=== PATIENT | male | born 1930 | race Caucasian/White ===

== ENCOUNTER 2016-12-12 06:16 | Day surgery (SDC) | payer MEDICARE ==
--- NOTE | 2016-11-17 07:42 | HP ---
CC: Dr. Mario Samuels* HISTORY AND PHYSICAL: DATE OF PLANNED ADMISSION AND SURGERY: 12/12/16 HISTORY OF PRESENT ILLNESS: Mr. Martin is an 86-year-old white male who is admitted with a tight urethral stricture for cystoscopy and internal urethrotomy. Mr. 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 He underwent an internal urethrotomy in April 2010 and this had to be repeated in October 2011, in both cases with good results. Over the last year, he has noted progressive decrease in his urinary stream and had a urethroscopy, which showed recurrence of the tight stricture. This could not be dilated in the office. He had a small post void residual. He has not had any episodes of urinary retention or urinary tract infections. Because of the recurrence of the stricture, which is becoming more symptomatic, he is admitted for the above procedure. PAST MEDICAL HISTORY AND SYSTEM REVIEW: 1. He is hypertensive, maintained on lisinopril 10 mg daily and on doxazosin 4 mg daily. 2. He has hyperlipidemia, on Simvastatin 20 mg daily. 3. He is a borderline diabetic, which is controlled on diet only. 4. He is still very active and denies any chest pain, shortness of breath, or difficulty breathing. ALLERGIES: He denies any allergies to medications. PHYSICAL EXAMINATION GENERAL: Pleasant, healthy looking white male who looks fit for his age. VITAL SIGNS: Blood pressure 120/80, pulse of 60. LUNGS: Clear. HEART: Regular and rhythmic, no murmurs. ABDOMEN: Soft, no masses, no tenderness, and no CVA tenderness. : External genitalia are normal. RECTAL: Exam shows a moderately enlarged prostate with a nodule in the left apex, but no induration. IMPRESSION: 1. 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 2. Hypertension. 3. Hyperlipidemia. PLAN: Plan is for cystoscopy and internal urethrotomy. I discussed the above plans in detail with the patient. All his questions were answered. [id number]/[facility] #: [id number] RONDA
[~2016-12-12 06:16] MED LIST: Buffered Lidocaine 0.9% SYRIN* 5 ML/SYR SYRINGE INTRADERM ONE; Buffered Lidocaine 0.9% SYRIN* 5 ML/SYR SYRINGE ONE; Famotidine IV* 10 MG/ML 2 ML (20 mg) IV ONE; Famotidine IV* 10 MG/ML 2 ML (20 mg) ONE; cefTRIAXone VIAL(*) 1,000 MG VIAL ONE
[2016-12-12] MEDS ORDERED: Iohexol 180 (CONTRAST) 10 ML SDV IV ONE (07:16)
[2016-12-12] MEDS ORDERED: fentaNYL* 50 MCG/ML 2 ML VIAL (100 MCG VIAL) ONE (07:25)
[2016-12-12] MEDS ORDERED: Ondansetron INJ* 2 MG/ML VIAL ONE (07:26)
[2016-12-12] MEDS ORDERED: Lidocaine 2% PF * 5 ML VIAL ONE (07:26)
[2016-12-12] MEDS ORDERED: Ketorolac INJ* 30 MG/ML 1 ML VIAL ONE (07:26)
[2016-12-12] MEDS ORDERED: Propofol* 10 MG/ML 20 ML BTL IV PUSH ONE (07:26)
[2016-12-12] MEDS ORDERED: Glycopyrrolate IV* 0.2 MG/ML 1 ML VIAL ONE (08:09)
[2016-12-12] MEDS ORDERED: EPHEDrine (Pressors)* 50 MG/ML VIAL ONE (08:09)
[2016-12-12] MEDS ORDERED: Ondansetron INJ* 2 MG/ML VIAL IV PRN (08:33)
[2016-12-12] MEDS ORDERED: Ketorolac INJ* 30 MG/ML 1 ML VIAL IV PRN (08:33)
[2016-12-12 09:03] VITALS: BP 116/58
--- NOTE | 2016-12-13 01:09 | OP ---
CC: Mario Samuels MD * DATE OF OPERATION: 12/12/16 - [facility] DATE OF : 32 SURGEON: Naresh Jimenez MD ANESTHESIOLOGIST: Dr. Gustavo Jama. ANESTHESIA: General. PRE-OP DIAGNOSES: 1. Multiple urethral strictures. 2. Partial urinary retention due to above. POST-OP DIAGNOSES: 1. Multiple urethral strictures. 2. Partial urinary retention due to above. OPERATIVE PROCEDURE: 1. Direct internal optic urethrotomies (penile and bulbar urethrae). 2. Cystoscopy. INDICATION FOR PROCEDURE: Mr. Box is an 86-year-old white male who has a long history of bladder outlet obstruction and tight urethral strictures. He underwent internal urethrotomies in April 2010 and again in October 2011 with good result. Over the last year, he had recurrence of his obstructive symptoms, mostly slow stream, hesitancy and frequency. Cystoscopy last year showed recurrence of the tight stricture. He is now admitted for internal urethrotomies. PATHOLOGY AT CYSTOSCOPY: There were multiple concentric strictures involving the penile and bulbar urethrae. The most dense stricture was in the bulbar urethra about 2 cm distal to the external sphincter. There was moderate prostate enlargement and obstruction. Examination of the bladder showed moderate diffuse trabeculations. There were no suspicious bladder lesions seen. DESCRIPTION OF PROCEDURE: After successful general anesthesia, the patient was placed in the lithotomy position and was prepped and draped in the usual manner. The direct internal optic urethrotome was then introduced into the urethra. The first stricture in the bulbar urethra was noted. A flexible tip guide wire was introduced through the scope and through the strictures and positioned inside the bladder. The strictures were then divided at 12 o'clock. The bulbar strictures were similarly divided. The corpus cavernosum was not entered and there was minimal bleeding from the urethrotomies. The prostatic urethra was then inspected. The bladder was entered and inspected. Additional urethrotomies were performed while pulling out the urethrotome. At the completion of the procedure, there seemed to be wide urethra with good result of the urethrotomies. A size 18-Italian Wing catheter was passed without difficulty and balloon inflated with 15 cc of water. The patient tolerated the procedure well and left the operating room in good condition. The plan is to keep the Wing in place for 3 days. It will be removed in the office. [id number]/[facility] #: [id number] RONDA
== END 2016-12-12 09:35 | disposition home or self-care (01) ==
LOC: OR 06:16
PROVIDERS: ATTEND Urology
PROC: 0TND8ZZ Release Urethra, Via Natural or Artificial Opening Endoscopic (ICD-10-PCS; principal; 2016-12-12 07:45)
DX: N35.9 Urethral stricture, unspecified (principal); R33.8 Other retention of urine; I10 Essential (primary) hypertension; E78.5 Hyperlipidemia, unspecified; R73.03 Prediabetes; N40.0 Benign prostatic hyperplasia without lower urinary tract symptoms; Z87.891 Personal history of nicotine dependence; Z68.30 Body mass index [BMI] 30.0-30.9, adult
CPT/HCPCS: 93005; J0696; J1885; J2405; J2704; J3010

== ENCOUNTER 2017-07-07 11:56 | Day surgery (SDC) | payer MEDICARE ==
--- NOTE | 2017-07-03 19:43 | HP ---
CC: Mario Samuels MD * PREOPERATIVE HISTORY AND PHYSICAL: DATE OF ADMISSION: 07/07/17 This patient is scheduled for same-day surgery admission by Dr. Onofre on Monday , 07/07/17. ATTENDING SURGEON: Ria Onofre MD * (dictated by Lizzie Lazo NP). CHIEF COMPLAINT: Left inguinal hernia. HISTORY OF PRESENT ILLNESS: The patient is an 86-year-old male recently evaluated by Dr. Onofre for a left inguinal hernia. The patient recently noticed swelling in the left scrotum after shoveling snow. He completed his 12 x [address] without stopping. He denies any pain in the left groin. He denies any signs or symptoms to suggest incarceration or strangulation. He has a history of baseline dysuria secondary to urethral strictures. He had a right inguinal hernia repair in 1963 after doing some heavy lifting. He has also had an open cholecystectomy in 1989. Dr. Onofre examined the patient and there is a left inguinal hernia that extends into the scrotum and Dr. Onofre was able to reduce the hernia with some difficulty because of its size. Dr. Onofre has recommended open left inguinal repair with mesh as the same-day surgery procedure, she discussed the nature of the surgical procedure, the rationale for the procedure, the relevant risks and benefits and today, I reviewed the expected postoperative care and recovery. The patient has had a chance to ask questions and stated that he understands the information and is satisfied with the answers given to his questions. He will sign surgical consent on the day of surgery. PAST MEDICAL HISTORY: 1. Hypertension. 2. Diet controlled type 2 diabetes. 3. Urethral strictures. 4. Hyperlipidemia. PAST SURGICAL HISTORY: Open right inguinal hernia repair in 1963; open cholecystectomy in 1989; and appendectomy at age 6. MEDICATIONS: 1. Lisinopril 20 mg p.o. daily in the morning. 2. Aspirin 81 mg daily and the patient will hold that for 5 days before surgery. 3. Simvastatin 20 mg p.o. daily. 4. Doxazosin 4 mg p.o. daily. 5. Vitamin D3 supplement 400 international units daily. 6. Advil Cold and Sinus tablet p.r.n. ALLERGIES: No known drug allergies. FAMILY HISTORY: Father with a history of abdominal aortic aneurysm. Mother with a history of emphysema. SOCIAL HISTORY: He is and lives alone in his own trailer; his daughter , Keeley lives in the same trailer park and she will be with him on the day of surgery; he quit smoking over 30 years ago, he denies the use of alcohol or other substances. REVIEW OF SYSTEMS: Constitutional: No fevers, chills, excessive fatigue, or weight loss. No previous anesthesia complications, no history of deep vein thrombosis or pulmonary embolism. Endocrine: Type 2 diabetes, diet controlled with the last hemoglobin A1c 6.8 in March 2017. No thyroid disease. Hematologic: No easy bruising or bleeding. No previous blood transfusions. Respiratory: No dyspnea on exertion or chronic cough. Cardiovascular: No anginal chest pain or palpitations. Gastrointestinal: No nausea, vomiting, diarrhea, or constipation. No change in bowel habits. Genitourinary: History of urethral strictures with multiple office procedures by Dr. Jimenez. Musculoskeletal: No back pain or complaints of joint pain. Neurologic: No headache or blurred vision or areas of focal weakness. PHYSICAL EXAMINATION GENERAL SURVEY: The patient is an 86-year-old male, well developed, well nourished, in no acute distress. VITAL SIGNS: Height 64.5 inches, weight 195 pounds, body mass index 33. Blood pressure 130/78, pulse 78 and regular, respiratory rate 18, temperature 96.8 tympanic. HEENT: Benign. NECK: Supple. No cervical lymphadenopathy. BACK: No CVA tenderness. LUNGS: Breath sounds bilaterally clear and equal. HEART: Regular rate and rhythm. No murmurs or rubs appreciated. ABDOMEN: Active bowel sounds. Well-healed right upper quadrant surgical scar, status post open cholecystectomy; diastasis recti. No other obvious masses or organomegaly. INGUINAL EXAM: Notable for swelling on the left side that extends into the scrotum. The hernia is reducible with difficulty because of its size. GENITALIA: Done within the past year, not repeated. RECTAL: Done within the past year, not repeated. EXTREMITIES: Warm without edema or skin ulcerations. NEUROLOGIC: Alert and oriented x3. Steady gait. SKIN: Warm, dry, intact. IMPRESSION: Left inguinal hernia. PLAN: Same-day surgery admission to Dr. Onofre's service on 07/07/17, for open left inguinal hernia repair with mesh. TIME SPENT: Total time spent 60 minutes with greater than 50% in [id number] history taking, patient education, and coordination of care. WILBERT LAZO, SUZETTE [id number]/[facility] #: [id number] RONDA
[~2017-07-07 11:56] MED LIST changes: +Lidocaine 2% PF * 5 ML VIAL ONE; +Metoclopramide IV* 5 MG/ML 2 ML VIAL IV SLOW PU ONE; +Metoclopramide IV* 5 MG/ML 2 ML VIAL ONE; +Midazolam* 1 MG/ML 2 ML VIAL (2 MG) ONE; +Propofol* 500 MG/50 ML BTL ONE; +Sodium Citrate/Citric Acid* 15 ML UDC ONE; +Sodium Citrate/Citric Acid* 15 ML UDC PO ONE; -cefTRIAXone VIAL(*) 1,000 MG VIAL ONE; +fentaNYL* 50 MCG/ML 2 ML VIAL (100 MCG VIAL) ONE
[2017-07-07] MEDS ORDERED: ceFAZolin 2 GM in 100 MLS NS (*) BAG IVPB ONE (11:57)
[2017-07-07] MEDS ORDERED: Bupivacaine 0.5% SDV PF* 10-30ML VIAL ONE (12:49)
[2017-07-07] MEDS ORDERED: Bupivacaine 0.25% SDV* 30 ML ONE (12:49)
[2017-07-07] MEDS ORDERED: Lidocaine 1% MPF wEPI 200,000* 30 ML SDV ONE (12:49)
[2017-07-07] MEDS ORDERED: EPHEDrine (Pressors)* 50 MG/ML VIAL ONE (13:13)
[2017-07-07] MEDS ORDERED: HYDROmorphone INJ* 1 MG/ML CARPUJECT SYRINGE IV PRN (13:14)
[2017-07-07] MEDS ORDERED: Ondansetron INJ* 2 MG/ML VIAL IV PRN (13:14)
[2017-07-07] MEDS ORDERED: oxyCODONE/Acetamin 5/325 MG* TAB PO PRN ×2 (13:14→14:16)
[2017-07-07] MEDS ORDERED: Acetaminophen TAB* 325 MG PO PRN (13:14)
[2017-07-07] MEDS ORDERED: Naloxone* 0.4 MG/ML 1 ML VIAL IV PRN (13:14)
[2017-07-07] MEDS ORDERED: fentaNYL* 50 MCG/ML 2 ML VIAL (100 MCG VIAL) IV PRN (13:14)
[2017-07-07] MEDS ORDERED: KETAMINE HCL* 50 MG/ML 10 ML VIAL ONE (13:16)
[2017-07-07] MEDS ORDERED: VASOPRESSIN 20 UNITS/ML 1 ML VIAL ONE (13:22)
[2017-07-07] MEDS ORDERED: Sterile Water for Inj* 10 ML ONE (13:22)
[2017-07-07] MEDS ORDERED: Propofol* 10 MG/ML 20 ML BTL IV PUSH ONE (13:58)
--- NOTE | 2017-07-07 14:19 | OP ---
Operative Report - Blank - Operative Report Date of Operation: 07/07/17 Note: Pre-op: Left inguinal hernia Post-op: Same Procedure: Open left inguinal hernia repair with mesh; evacuation of hydrocele Surgeon: Dr. Onofre Hand Sign Writer: EFREN Caal Anesthesia: MAC and Local Fluids: LR 1,000 cc EBL: Minimal Catheter: None Drains: None Specimen: Lipoma of cord Findings: See dictated op note
[2017-07-07 15:20] VITALS: BP 97/48
--- NOTE | 2017-07-08 14:52 | OP ---
CC: Mario Samuels MD * DATE OF OPERATION: 07/07/17 - [facility] DATE OF : 32 SURGEON: Ria Onofre MD [employer] INSURANCE: EFREN Caal; EFREN Clement student PRE-OPERATIVE DIAGNOSIS: Left inguinal hernia. POST-OPERATIVE DIAGNOSIS: Left inguinal hernia and hydrocele. OPERATIVE PROCEDURE: Left inguinal hernia repair and evacuation of hydrocele. INDICATIONS: Mr. Martin is an 86-year-old male who presented to the office with a symptomatic left inguinal hernia prompting the plan for repair. DESCRIPTION OF PROCEDURE: He was brought to the operating room, placed on the OR table in a supine position and given IV sedation. Left groin was prepped and draped in usual sterile fashion. After infiltrating with local anesthetic, an incision was made in the inguinal area. Subcutaneous tissue was then divided with electrocautery. It was recognized that before encountering any external oblique fascia, the hernia was encountered and when a search was made for the external oblique fascia it turned out to be very attenuated. It edges were identified superiorly and the ilioinguinal nerve was identified. Ilioinguinal nerve was divided from surrounding tissue and elevated over the superior flap of the external oblique fascia. The cord was then encircled and retracted anteriorly. This garret the hydrocele of the scrotum into the wound and so the cord structures were divided from the actual hernia. The hydrocele sac was opened and some of the excess tunica vaginalis was excised and then again cord structures were from the hernia sac and the testicle was replaced into the scrotal sac. The floor of the inguinal canal was noted to be very attenuated with almost no integrity but once the hernia sac was freed from the cord structures, it was able to be reduced into the deep inguinal ring, which was quite large. A decision was made to use a bilayer mesh and this was placed such that the bottom layer was in the deep inguinal ring and the top layer was on the floor of the inguinal canal. It was secured medially to the pubic tubercle and superiorly to the conjoint tendon and inferiorly attempts were made to secure it to a structure consistent with the shelving portion of the inguinal ligament, but this was again attenuated. The natural contour of the anterior layer of the mesh created path for the cord structures. The external oblique fascia was then reapproximated over the cord structures, after replacement of the nerve in the inguinal canal. The external oblique fascia was reapproximated with 0 Vicryl and then closure was accomplished, 3-0 Polysorb was used to approximate the subcutaneous tissue and the skin was closed with 4-0 Prolene in a subcuticular fashion. Steri-Strips and a dry sterile dressing were applied. All sponge and instrument counts were correct. The patient tolerated the procedure well and was transferred to Recovery in the stable condition. [id number]/[facility] #: [id number] [facility]
== END 2017-07-07 15:47 | disposition home or self-care (01) ==
LOC: OR 11:56
PROVIDERS: ATTEND Surgery
DX: K40.90 Unilateral inguinal hernia, without obstruction or gangrene, not specified as recurrent (principal); N43.3 Hydrocele, unspecified; E11.9 Type 2 diabetes mellitus without complications; E78.5 Hyperlipidemia, unspecified; Z68.32 Body mass index [BMI] 32.0-32.9, adult; I10 Essential (primary) hypertension; Z87.891 Personal history of nicotine dependence; N35.9 Urethral stricture, unspecified
CPT/HCPCS: 88304; A9270-GY; C1781; J2001; J2250; J2704; J2765; J3010

== ENCOUNTER 2018-02-07 10:37 | Inpatient (IN) | payer MEDICARE ==
[2018-02-07 11:50] LABS: INR 1.07 (0.77-1.02)
[2018-02-07 12:07] LABS: ABS Basophils 0 10^3/ul (0-0.2); ABS Eosinophils 0 10^3/ul (0-0.6); ABS Lymphocytes 0.6 10^3/ul (1.0-4.8); ABS Monocytes 0.7 10^3/ul (0-0.8); ABS Neutrophils 9.1 10^3/ul (1.5-7.7); ABS Nucleated RBC 0 10^3/ul; Eosinophil % 0 % (0-6); Hematocrit 33 % (42-52); Lymphocyte % 5.5 % (25-47); Mean Corpuscular HGB Conc 34 g/dl (31-36); Mean Corpuscular Hemoglobin 31 pg (27-31); Mean Corpuscular Volume 93 fL (80-94); Mean Platelet Volume 8.8 um3 (7.4-10.4); Nucleated Red Blood Cells % 0.1; Platelet Count 194 10^3/ul (150-450); Red Blood Count 3.52 10^6/ul (4.00-5.40); Red Cell Distribution Width 12 % (10.5-15); White Blood Count 10.4 10^3/ul (3.5-10.8)
--- NOTE | 2018-02-07 12:11 | ED ---
Shortness of Breath - HPI Summary HPI Summary: This patient is an 87 year old M [facility] son with a chief complaint of SOB since 3 weeks ago. Pt endorses right anterior CP only with cough and movement. He endorses productive cough with white phlegm. He denies hemoptysis and orthopnea. Pt denies PMHx CHF, DVT, PE, asthma, COPD, and KS. PMHx DM, HTN. - History of Current Complaint Chief Complaint: EDChestPainROMI Time Seen by Provider: 02/07/18 10:57 Hx Obtained From: Patient Onset/Duration: Gradual Onset, Lasting Weeks, Still Present Timing: Constant Current Severity: Mild Dyspnea At: Exertion Aggrevating Factors: Movement, Other - cough Associated Signs & Symptoms: Cough (Productive) - white phlegm, Chest Pain w/ Cough - Allergy/Home Medications Allergies/Adverse Reactions: Allergies Allergy/AdvReac Type Severity Reaction Status Date / Time No Known Allergies Allergy Verified 02/07/18 11:13 Home Medications: Home Medications Acetaminophen TAB* [Tylenol TAB*] 650 mg PO Q6H PRN 02/07/18 [History Confirmed 02/07/18] Aspirin EC TAB* [Ecotrin EC Low Dose 81 MG*] 81 mg PO DAILY 02/07/18 [History Confirmed 02/07/18] Cholecalciferol TAB* [Vitamin D TAB*] 400 unit PO DAILY 02/07/18 [History Confirmed 02/07/18] Doxazosin TAB* [Cardura TAB*] 4 mg PO BEDTIME 02/07/18 [History Confirmed ] Lisinopril TAB* [Prinivil TAB*] 20 mg PO DAILY 02/07/18 [History Confirmed 02/07] Simvastatin TAB(NF) [Zocor(NF)] 20 mg PO QPM 02/07/18 [History Confirmed ] metFORMIN* [Glucophage 500 MG TAB *] 500 mg PO BID 02/07/18 [History Confirmed 02/07/18] PMH/Surg Hx/FS Hx/Imm Hx Endocrine/Hematology History: Reports: Hx Diabetes - type 2 , no meds Cardiovascular History: Reports: Hx Hypertension - on meds, Other Cardiovascular Problems/Disorders - high cholesterol Denies: Hx Congestive Heart Failure, Hx Deep Vein Thrombosis, Hx Myocardial Infarction Respiratory History: Reports: Other Respiratory Problems/Disorders - occas sinus issues Denies: Hx Asthma, Hx Chronic Obstructive Pulmonary Disease (COPD), Hx Pulmonary Edema GI History: Denies: Other GI Disorders History: Reports: Other Problems/Disorders - PROSTATE - Musculoskeletal History: Denies: Other Musculoskeletal History Sensory History: Reports: Hx Cataracts - SURGERY ON 12/30/15, AND 01/06/16, Hx Contacts or Glasses - READING, Hx Hearing Aid - right ear Opthamlomology History: Reports: Hx Cataracts - SURGERY ON 12/30/15, AND 01/06/16 , Hx Contacts or Glasses - READING Neurological History: Denies: Other Neuro Impairments/Disorders Psychiatric History: Denies: Hx Autism, Hx Schizophrenia - Surgical History Surgery Procedure, Year, and Place: 1963 - HERNIA SURGERY. - GALL BLADDER REMOVED. APPENDECTOMY CHILD. scar tissue in urethra x3, cmc Hx Anesthesia Reactions: No - Immunization History Immunizations Up to Date: Yes Infectious Disease History: No Infectious Disease History: Reports: Hx Hepatitis - HEPATITIS IN 1950'S, UNSURE OF WHAT TYPE, Hx Shingles Denies: Traveled Outside the [place] in Last 30 Days - Family History Known Family History: Negative: Hypertension, Diabetes - Social History Occupation: Retired Alcohol Use: None Substance Use Type: Reports: None Smoking Status (MU): Former Smoker Amount Used/How Often: 1/2 pack a day for15 yrs Review of Systems Negative: Fever Positive: Chest Pain All Other Systems Reviewed And Are Negative: Yes Physical Exam - Summary Physical Exam Summary: GENERAL: Patient is a well-developed and nourished M who is lying comfortable in the stretcher. Patient is not in any acute respiratory distress. HEAD AND FACE: Normocephalic EYES: PERRLA, EOMI x 2. EARS: Hearing grossly intact. MOUTH: Oropharynx within normal limits. NECK: Supple, trachea is midline, no adenopathy, no JVD, no carotid bruit. CHEST: Symmetric, no tenderness at palpation LUNGS: Clear to auscultation bilaterally. No wheezing or crackles. CVS: Regular rate and rhythm, S1 and S2 present, no murmurs or gallops appreciated. ABDOMEN: Soft, non-tender. Bowel sounds are normal. No abdominal abnormal pulsations. EXTREMITIES: Full ROM in all major joints, no edema, no cyanosis or clubbing. NEURO: Alert and oriented x 3. No acute neurological deficits. Speech is normal and follows commands. SKIN: Dry and warm Triage Information Reviewed: Yes Vital Signs On Initial Exam: Initial Vitals Temp Pulse Resp BP Pulse Ox 97.8 F 73 16 144/63 98 02/07/18 10:39 02/07/18 10:39 02/07/18 10:39 02/07/18 10:39 02/07/18 10:39 Vital Signs Reviewed: Yes Diagnostics - Vital Signs Vital Signs Temp Pulse Resp BP Pulse Ox 02/07/18 12:00 68 28 118/52 94 02/07/18 11:30 70 31 120/61 96 02/07/18 11:02 72 21 115/65 96 02/07/18 11:00 72 32 118/101 97 02/07/18 10:39 97.8 F 73 16 144/63 98 - Laboratory Lab Results: Lab Results 02/07/18 02/07/18 02/07/18 Range/Units 11:19 11:34 11:34 WBC 10.4 (3.5-10.8) 10^3/ul RBC 3.52 L (4.00-5.40) 10^6/ul Hgb 11.0 L (14.0-18.0) g/dl Hct 33 L (42-52) % MCV 93 (80-94) fL MCH 31 (27-31) pg MCHC 34 (31-36) g/dl RDW 12 (10.5-15) % Plt Count 194 (150-450) 10^3/ul MPV 8.8 (7.4-10.4) um3 Neut % (Auto) 88.0 H (38-83) % Lymph % (Auto) 5.5 L (25-47) % [place] % (Auto) 6.3 (0-7) % Eos % (Auto) 0 (0-6) % Baso % (Auto) 0.2 (0-2) % Absolute Neuts (auto) 9.1 H (1.5-7.7) 10^3/ul Absolute Lymphs (auto) 0.6 L (1.0-4.8) 10^3/ul Absolute Monos (auto) 0.7 (0-0.8) 10^3/ul Absolute Eos (auto) 0 (0-0.6) 10^3/ul Absolute Basos (auto) 0 (0-0.2) 10^3/ul Absolute Nucleated RBC 0 10^3/ul Nucleated RBC % 0.1 INR (Anticoag Therapy) 1.07 H (0.77-1.02) APTT 22.3 L (26.0-36.3) seconds D-Dimer, Quantitative Pending Sodium Pending Potassium Pending Chloride Pending Carbon Dioxide Pending Anion Gap Pending BUN Pending Creatinine Pending Est GFR ( Amer) Pending Est GFR (Non-Af Amer) Pending BUN/Creatinine Ratio Pending Glucose Pending Lactic Acid (0.5-2.0) mmol/L Calcium Pending Total Bilirubin Pending AST Pending ALT Pending Alkaline Phosphatase Pending Troponin I 0.01 (<0.04) ng/mL B-Natriuretic Peptide ( - 100) pg/mL Total Protein Pending Albumin Pending Globulin Pending Albumin/Globulin Ratio Pending 02/07/18 02/07/18 Range/Units 11:34 11:34 WBC (3.5-10.8) 10^3/ul RBC (4.00-5.40) 10^6/ul Hgb (14.0-18.0) g/dl Hct (42-52) % MCV (80-94) fL MCH (27-31) pg MCHC (31-36) g/dl RDW (10.5-15) % Plt Count (150-450) 10^3/ul MPV (7.4-10.4) um3 Neut % (Auto) (38-83) % Lymph % (Auto) (25-47) % [place] % (Auto) (0-7) % Eos % (Auto) (0-6) % Baso % (Auto) (0-2) % Absolute Neuts (auto) (1.5-7.7) 10^3/ul Absolute Lymphs (auto) (1.0-4.8) 10^3/ul Absolute Monos (auto) (0-0.8) 10^3/ul Absolute Eos (auto) (0-0.6) 10^3/ul Absolute Basos (auto) (0-0.2) 10^3/ul Absolute Nucleated RBC 10^3/ul Nucleated RBC % INR (Anticoag Therapy) (0.77-1.02) APTT (26.0-36.3) seconds D-Dimer, Quantitative Sodium Potassium Chloride Carbon Dioxide Anion Gap BUN Creatinine Est GFR ( Amer) Est GFR (Non-Af Amer) BUN/Creatinine Ratio Glucose Lactic Acid 1.9 (0.5-2.0) mmol/L Calcium Total Bilirubin AST ALT Alkaline Phosphatase Troponin I (<0.04) ng/mL B-Natriuretic Peptide 137 H ( - 100) pg/mL Total Protein Albumin Globulin Albumin/Globulin Ratio Result Diagrams: 02/10/18 05:44 02/10/18 05:44 Lab Statement: Any lab studies that have been ordered have been reviewed, and results considered in the medical decision making process. - CT CTA chest/thorax CT Interpretation: Positive (See Comments) CT Interpretation Completed By: Radiologist - Pulmonary emboli noted in the right lower lobe, right middle lobe and right upper lobe pulmonary arteries as well as in the left lower lobe pulmonary artery. Dr. Emery has reviewed this report. - EKG 1055 Cardiac Rate: NL - 73 EKG Rhythm: Sinus Rhythm ST Segment: Normal Ectopy: None EKG Interpretation: abnl R-wave progression EKG Comparison: No Significant Change - from 12/05/16. Course/Dx - Course Course Of Treatment: An 87-year-old M presents to the ED with a CC of SOB for 3 weeks. (+) productive cough (white phlegm), right anterior CP, but only with cough or movement. (-) hemoptysis and orthopnea. PMHx DM, HTN, denies PMHx COPD , asthma, PE, DVT, KS, and CHF. A CTA chest/thorax reveals bilateral PEs. An EKG reveals NSR 73, abnl R wave progression, similar EKG to 12/05/16. In the ED course, pt was given nl saline and started on heparin drip. Pt shows abnl D- dimer (>1050), H&H, RBC, neut%, lymph %, APTT, BUN, Na+, creat, glucose, and BNP. Case discussed with hospitalist. I discussed results with patient. The patient agrees with this plan. - Diagnoses Provider Diagnoses: Bilateral pulmonary embolism - Physician Notifications Discussed Care of Patient With: Luis Josue Time Discussed With Above Provider: 13:45 Instructed by Provider To: Other - Accepts admission. - Critical Care Time Critical Care Time: 30-74 min Discharge - Sign-Out/Discharge Documenting (check all that apply): Patient Departure - admit - Discharge Plan Condition: Fair Disposition: ADMITTED TO [facility] - Billing Disposition and Condition Condition: FAIR Disposition: Admitted to [facility] - Attestation Statements Document Initiated by Jenaro: Yes Documenting Scribe: Kieran Beltran Provider For Whom Jenaro is Documenting (Include Credential): Dr. Gissell Emery MD Scribe Attestation: Kieran Silvestre, scribed for Dr. Gissell Emery MD on 02/10/18 at 0732. Scribe Documentation Reviewed: Yes Provider Attestation: The documentation as recorded by the Kieran coats accurately reflects the service I personally performed and the decisions made by me, Dr. Gissell Emery MD
[2018-02-07 12:19] LABS: EGFR Non-African American 44.4 (>60)
[2018-02-07] MEDS ORDERED: NS 0.9% 500 ML* 500 ML IV ONE (12:40)
[2018-02-07] MEDS ORDERED: Iodixanol* (CONTRAST) 320 MG/ML 100 ML SDV IV ONE (12:57)
--- NOTE | 2018-02-07 13:59 | RAD ---
Indication: Shortness of breath, elevated d-dimer. Contrast: Administered 79.3 ml of VISAPAQUE 320 mg/ml CTA of the chest performed after IV contrast administration. Coronal and sagittal reconstructed images were obtained. The pulmonary arterial tree is well opacified. There are filling defects in the right main pulmonary artery extending to the right middle lobe and right lower lobe branches as well as the right upper lobe branches of the right pulmonary artery. Filling defects are noted in the left lower lobe branches of left pulmonary artery. Findings are consistent with pulmonary embolus. There may be some scarring noted in the lung bases. Emphysematous changes are noted. Thoracic aorta demonstrates no evidence of thoracic aortic dissection. Inferior thyroid lobes demonstrates a nodule in the lower pole of left lobe measuring 2.1 cm. No mediastinal or hilar adenopathy is otherwise noted. The heart demonstrates no pericardial effusion. IMPRESSION: Pulmonary emboli noted in the right lower lobe, right middle lobe and right upper lobe pulmonary arteries as well as in the left lower lobe pulmonary artery. Findings discussed with Dr. Emery at 1356 hours.
[2018-02-07] MEDS ORDERED: Heparin DRIP 25,000 UNITS(*) 25,000 UNITS/500 ML BAG ONE (14:51)
[2018-02-07] MEDS ORDERED: Heparin VIAL(*) 5000 UNITS/ML VIAL (FIVE THOUSAND) ONE (14:51)
[2018-02-07] MEDS: Heparin DRIP 25,000 UNITS(*) 25,000 UNITS/500 ML BAG IV SCH (14:55)
[2018-02-07] MEDS ORDERED: Heparin VIAL(*) 5000 UNITS/ML VIAL (FIVE THOUSAND) IV SCH (15:00)
[2018-02-07] MEDS ORDERED: Heparin VIAL(*) 5000 UNITS/ML VIAL (FIVE THOUSAND) IV PRN (15:02)
[2018-02-07] MEDS ORDERED: Albuterol 2.5 MG/3 ML NEB.SOL* (0.083%) INH PRN (15:40)
[2018-02-07] MEDS ORDERED: Al Hydrox/Mg Hydrox/Simet LIQ* 30 ML UDC PO PRN (15:40)
[2018-02-07] MEDS ORDERED: Acetaminophen TAB* 325 MG PO PRN (15:40)
[2018-02-07] MEDS ORDERED: Ondansetron INJ* 2 MG/ML VIAL IV PRN (15:40)
[2018-02-07] MEDS: Atorvastatin* 10 MG TAB PO SCH (17:43)
[2018-02-07] MEDS ORDERED: Doxazosin TAB* 2 MG PO SCH (21:00)
--- NOTE | 2018-02-07 21:01 | HP ---
CC: Dr. Samuels * ADMISSION HISTORY AND PHYSICAL: DATE OF ADMISSION: 02/07/18 PATIENT OF ADMITTING HOSPITALIST: Dr. Luis Josue.* (DICTATED BY EFREN LOPEZ) PRIMARY CARE PHYSICIAN: Dr. Mario Samuels. CHIEF COMPLAINT: Shortness of breath. HISTORY OF PRESENT ILLNESS: Mr. Box is a pleasant 87-year-old gentleman with past medical history significant for hypertension, type 2 diabetes mellitus , urethral stricture and benign prostatic hypertrophy, who presented to the emergency room today with 2-week history of worsening shortness of breath. The patient reports that he gets a little "winded" after minimal exertions at home that has been going on for the past 2 weeks, but denied any associated substernal chest pain, calf pain, or history of PE or DVT. His shortness of breath has gotten progressively worse and now associated with very minimal exertions at home. He also reports some pleuritic right-sided chest pain upon taking deep inspiration. He denied any similar symptoms in the past. He denied any fever, chills, nausea, vomiting, dizziness, headache, or any other associated symptoms. He had laboratory workup done in the emergency room today that revealed normal CBC with slightly decreased hemoglobin and hematocrit at 11 and 33, which has been baseline for the patient for the past year. He had an elevated D-dimer greater than 1050 for which a followup CTA of the chest was done revealing multiple pulmonary emboli more localized to the right lung. The patient was able to maintain good oxygen saturation on room air; however, he continued to have pleuritic chest pain with deep inspiration. Given his shortness of breath and the findings of the CTA, we were asked to see the patient for further evaluation and to consider admission for observation under hospitalist services. Heparin drip was initiated in the emergency room per protocol and the patient was clinically stable at the time of admission. PAST MEDICAL HISTORY: As mentioned above, significant for: 1. Hypertension. 2. Type 2 diabetes mellitus. 3. Urethral strictures. 4. Hyperlipidemia. 5. Arthritis. PAST SURGICAL HISTORY: Significant for: 1. Open right inguinal hernia repair in the early 60s. 2. Open cholecystectomy in 1989. 3. Appendectomy at age 6. 4. Left inguinal hernia repair in June 2017 with evacuation of left hydrocele. CURRENT MEDICATIONS: His medications at home include: 1. Tylenol 650 mg p.o. q.6 hours as needed for fever or pain. 2. Aspirin 81 mg p.o. daily. 3. Vitamin D 400 units p.o. daily. 4. Cardura 4 mg p.o. q.h.s. 5. Lisinopril 20 mg p.o. daily. 6. Glucophage 500 mg p.o. b.i.d. 7. Zocor 20 mg p.o. daily. ALLERGIES: He has no known drug allergies. FAMILY HISTORY: Significant for history of AAA in his father as well as history of COPD and emphysema in his mother. SOCIAL HISTORY: The patient is and lives alone. His daughter, Keeley, lives in the same [place] park and she carries the healthcare proxy. He is a former smoker, who quit over 30 years ago. Denies use of any alcohol or illicit drug use. He wishes to be a full code. REVIEW OF SYSTEMS: See HPI. Otherwise, 14 points review of systems were examined and they were essentially negative. PHYSICAL EXAMINATION GENERAL: He is a pleasant, elderly gentleman, in no acute distress or discomfort at the time of admission. VITAL SIGNS: Revealed temperature of 97.8, heart rate of 68, blood pressure 132 /64, respiration of 20 with O2 sat of 94% on room air. HEENT: Head is normocephalic, atraumatic. Sclerae anicteric. PERRLA. EOMs intact. Oropharynx is pink and moist. NECK: Supple. Trachea midline. No cervical adenopathy, thyromegaly, or JVD. LUNGS: Clear to auscultation bilaterally. HEART: Regular rate and rhythm. Normal S1 and S2 without rubs, murmurs, or gallops. ABDOMEN: Soft, nontender, and nondistended. No hernias, masses, or hepatosplenomegaly. BACK: With normal curvature and no CVA tenderness. EXTREMITIES: Without cyanosis, clubbing, or edema. NEUROLOGIC: He is awake, alert, and oriented x4. Tongue is midline. Handgrip is equal bilaterally and sensation is intact throughout. RECTAL: Exam deferred at this time. LABORATORY WORKUP: CBC with white count of 10,000, hemoglobin of 11, hematocrit of 33, and platelets of 194. Chemistry panel with sodium of 132, potassium 4.5, chloride of 102, CO2 of 22, BUN of 30, and creatinine of 1.5. His glucose is 183. LFTs within normal limits. BNP is slightly elevated at 137. ACCESSORY DIAGNOSTIC DATA: As mentioned above, CTA of the chest and thorax revealed multiple emboli noted to the right lower lobe, right middle lobe and right upper lobe pulmonary arteries as well as in the left lower lobe pulmonary artery. IMPRESSION: An 87-year-old gentleman with history of hypertension, hyperlipidemia, type 2 diabetes mellitus and urethral stricture, who presented to the emergency room with 2 weeks history of progressive shortness of breath and found to have multiple pulmonary emboli. ASSESSMENT AND PLAN: The patient will be admitted under hospitalist services for the followin. Pulmonary embolism. The patient appeared to be clinically stable. We will maintain close observation on telemetry unit and provide oxygen therapy as needed. Heparin drip per protocol was initiated in the emergency room and we will continue unfractionated heparin drip for the time being, likely to switch to oral agents such as Xarelto or Eliquis upon discharge. The patient expressed fear of using needles at home and would like to avoid any possibility of using Lovenox as an outpatient. His exam was essentially unremarkable and denied any calf pain for which I will not proceed with bilateral lower extremity Doppler at this time; however, if there was any clinical significance or any changes overnight, we might proceed with that tomorrow. 2. Hypertension. The patient had a recent visit with Dr. Samuels, who withheld one of his blood pressure agents at this time. The patient tells me that he is no longer taking his morning dose of lisinopril; however, he continues to take his Cardura 4 mg every night and we will continue this dose and hold lisinopril until further confirmation. His blood pressure has been optimal at this time. 3. Type 2 diabetes mellitus. The patient is on low dose metformin at home and most of his diabetes is controlled by diet. We will keep him on consistent carbohydrate diet and we will do fingersticks every a.c. and every h.s. and to use insulin periodically as needed. 4. Hyperlipidemia. I will keep him on his Zocor and aspirin. 5. Deep vein thrombosis prophylaxis: The patient is already on heparin drip for treatment of pulmonary embolism. 6. Code status: He wishes to be a full code. 7. Disposition: Admit to [facility] for observation overnight and treatment of pulmonary embolism. TIME SPENT: Approximately 60 minutes spent admitting this patient for which greater than 50% on taking history and performing physical exam. I have discussed the case with my attending, Dr. Josue, who agreed to plan of care. EFRNE CUADRA [id number]/CPS #: [id number] RONDA
[2018-02-08 04:29] LABS: ABS Basophils 0 10^3/ul (0-0.2); ABS Eosinophils 0 10^3/ul (0-0.6); ABS Lymphocytes 1.1 10^3/ul (1.0-4.8); ABS Monocytes 0.8 10^3/ul (0-0.8); ABS Nucleated RBC 0 10^3/ul; Eosinophil % 0.1 % (0-6); Hematocrit 28 % (42-52); Hemoglobin 9.5 g/dl (14.0-18.0); Lymphocyte % 12.6 % (25-47); Mean Corpuscular HGB Conc 34 g/dl (31-36); Mean Corpuscular Hemoglobin 32 pg (27-31); Mean Corpuscular Volume 93 fL (80-94); Mean Platelet Volume 8.6 um3 (7.4-10.4); Nucleated Red Blood Cells % 0; Platelet Count 157 10^3/ul (150-450); Red Blood Count 2.99 10^6/ul (4.00-5.40); Red Cell Distribution Width 12 % (10.5-15); White Blood Count 8.9 10^3/ul (3.5-10.8)
[2018-02-08 04:38] LABS: EGFR Non-African American 53.3 (>60)
[2018-02-08] MEDS: Aspirin EC TAB* 81 MG TAB.EC PO SCH (10:43)
[2018-02-08] MEDS: Cholecalciferol TAB* 400 UNIT PO SCH (10:43)
--- NOTE | 2018-02-08 14:59 | RAD ---
HISTORY: PE COMPARISONS: None relevant TECHNIQUE: Multiple transverse and longitudinal ultrasound images were obtained of the bilateral lower extremities from the level of the common femoral vein inferiorly through to the infrapopliteal veins using grayscale, color Doppler, and spectral Doppler imaging with and without compression and with augmentation. FINDINGS: VEINS: The left peroneal veins are not clearly visualized. The remainder of the venous system of the bilateral lower extremities is compressible throughout its course, with normal flow on color Doppler imaging and normal response to augmentation on spectral Doppler imaging. SOFT TISSUES: Unremarkable. OTHER FINDINGS: None. IMPRESSION: LIMITED VISUALIZATION OF THE PERONEAL VEINS OF THE LEFT CALF WHICH MAY BE TECHNICAL OR MAY REPRESENT OCCLUSION OF THE PERONEAL VEINS OF UNCERTAIN ACUITY. OTHERWISE, THERE IS NO DEEP VEIN THROMBOSIS OF THE LOWER EXTREMITIES BILATERALLY.
[2018-02-08] MEDS: Heparin DRIP 25,000 UNITS(*) 25,000 UNITS/500 ML BAG IV SCH (16:01)
--- NOTE | 2018-02-08 16:24 | ECHO ---
Patient: ASHLEY YOUSSEF [facility] Rec#: [id number] : 1930 Date: 02/08/2018 Age: 87y Height: 167.64 cm / 66.0 in Weight: 78.47 kg / 172.9 lbs Sex: M BSA: 1.88 Room#: 448 Admit Date#: 02/07/2018 Type: Inpatient Referring: Nicola Ross Reading: Hesham Pinedo MD Coupling Machine Operator: Muna Cortes,SYDCS,RDMS CC: Mario Samuels MD Transthoracic Echocardiogram Indication: PE BP: 107/45 HR: 68 Rhythm: NSR Findings History: HTN, HLD, DM Technical Comments: The study quality is good. Left Ventricle: The left ventricular chamber size is normal. Mild concentric left ventricular hypertrophy is observed. There is a prominent septal knuckle. The estimated ejection fraction is 55-60%. There is an E to A reversal in the mitral valve flow pattern suggestive of diastolic dysfunction. Left Atrium: The left atrium is mildly dilated. Right Ventricle: The right ventricle wall thickness is mildly increased. The right ventricular cavity size is normal. The right ventricular global systolic function is low normal. Right Atrium: The right atrial cavity size is normal. Aortic Valve: The aortic valve is trileaflet. The aortic valve leaflets are mildly thickened. Systolic excursion of the aortic valve is normal. There is no evidence of aortic regurgitation. There is no evidence of aortic stenosis. Mitral Valve: The mitral valve leaflets appear normal. There is no evidence of mitral regurgitation. There is no evidence of mitral stenosis. Tricuspid Valve: The tricuspid valve leaflets are normal. There is trace tricuspid regurgitation. Unable to estimate the right ventricular systolic pressure. Pulmonic Valve: The pulmonic valve appears normal. There is mild pulmonic regurgitation. Pericardium: There is no significant pericardial effusion. Aorta: The aortic root appears normal. There is no dilatation of the aortic arch. Pulmonary Artery: The main pulmonary artery is not well visualized. Venous: The inferior vena cava is not visualized. Summary: There was not any prior study for comparison. Conclusions Mild concentric left ventricular hypertrophy is observed. The estimated ejection fraction is 55-60%. There is an E to A reversal in the mitral valve flow pattern suggestive of diastolic dysfunction. The left atrium is mildly dilated. The right ventricle wall thickness is mildly increased. The right ventricular global systolic function is low normal. The aortic valve leaflets are mildly thickened. No significant valvular lesions. Measurements Name Value Normal Range RVIDd (AP) 2D 3 cm (0.9 - 2.6) RVDdMajor (2D) 3.7 cm (2.2 - 4.4) RAd ISD 4CH 4.5 cm (3.4 - 4.9) RA (A4C)W 2.2 cm (2.9 - 4.6) IVSd (2D) 1.4 cm (0.6 - 1) LVPWd (2D) 1.2 cm (0.6 - 1) LVIDd (2D) 3.9 cm (3.6 - 5.4) LVIDs (2D) 2.3 cm - LV FS (2D) 40 % (25 - 45) Aortic Annulus 2.1 cm (1.4 - 2.6) Ao root diameter (2D) 2.8 cm (2.1 - 3.5) Ascending Ao 2.7 cm (2.1 - 3.4) Aortic arch 3.4 cm (1.8 - 3.4) LA dimension (AP) 2D 3.5 cm (2.3 - 3.8) LAd ISD 4CH 5.8 cm (2.9 - 5.3) LA ISD 4CH W 3.8 cm (2.5 - 4.5) Name Value Normal Range LA ESV SP 4CH (A/L) 54.16 ml - LA ESV SP 2CH (A/L) 47.43 ml - LA ESV BP (A/L) 53.19 ml - LA ESV BP (A/L) index 28 ml/m2 - LA ESV SP 4CH (MOD) 47.68 ml - LA ESV SP 2CH (MOD) 43.41 ml - Name Value Normal Range MV E-wave Vmax 0.7 m/sec - MV deceleration time 215 msec - MV A-wave Vmax 0.9 m/sec - MV E:A ratio 0.8 ratio - P. vein S-wave Vmax 0.5 m/sec - P. vein D-wave Vmax 0.4 m/sec - P. vein S:D Vmax ratio 1.2 ratio - P. vein A-wave duration 100 msec - LV septal e' Vmax 0.07 m/sec - LV lateral e' Vmax 0.09 m/sec - LV E:e' septal ratio 10 ratio - LV E:e' lateral ratio 8 ratio - Name Value Normal Range AV Vmax 1.5 m/sec - AV VTI 29 cm - AV peak gradient 9 mmHg - AV mean gradient 4.7 mmHg - LVOT Vmax 0.9 m/sec - LVOT VTI 19.6 cm - LVOT peak gradient 3.2 mmHg - LVOT mean gradient 1.7 mmHg - ASHLEY Vmax 0.8 m/sec - Name Value Normal Range RAP 8 mmHg - Name Value Normal Range PV Vmax 0.8 m/sec - PV peak gradient 2.6 mmHg -
[2018-02-08] MEDS: Atorvastatin* 10 MG TAB PO SCH (18:00)
--- NOTE | 2018-02-08 18:08 | PN ---
Subjective Date of Service: 02/08/18 Interval History: Patient is feeling ok. Intermittent pleuritic CP. Patient had slight SOB and needed O2 overnight. Patient denies F/C, night sweats, abdominal pain, leg pain , dysuria, or other pain. Patient has been having weight loss recently with poor appetite. Patient denies any recent travel, immobilization or illness. Patient had a colonoscopy several years ago. 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 Family History: Unchanged from Admission Social History: Unchanged from Admission Past Medical History: Unchanged from Admission Objective Active Medications: Acetaminophen (Tylenol Tab*) 650 mg PO Q4H PRN PRN Reason: FEVER/PAIN Al Hydrox/Mg Hydrox/Simethicone (Maalox Plus*) 30 ml PO Q6H PRN PRN Reason: INDIGESTION Albuterol (Ventolin 2.5 Mg/3 Ml Neb.Kimmie*) 2.5 mg INH [id number] AWAKE PRN PRN Reason: sob/wheezing Aspirin (Aspirin Ec Tab*) 81 mg PO DAILY [facility] Last Admin: 02/08/18 10:43 Dose: 81 mg Atorvastatin Calcium (Lipitor*) 10 mg PO QPM [facility] Last Admin: 02/08/18 18:00 Dose: 10 mg Cholecalciferol (Vitamin D Tab*) 400 unit PO DAILY [facility] Last Admin: 02/08/18 10:43 Dose: 400 unit Doxazosin Mesylate (Cardura Tab*) 4 mg PO BEDTIME [facility] Heparin Sodium (Porcine) (Heparin Vial(*)) 0 units IV .PRN BOLUS PRN PRN Reason: HEPARIN DRIP PROTOCOL Heparin Sodium/Dextrose (Heparin Drip 25,000 Units(*)) 25,000 units in 500 mls @ 0 mls/hr IV PER RATE [facility]; Protocol Last Admin: 02/08/18 16:01 Dose: 20 mls/hr Ondansetron HCl (Zofran Inj*) 4 mg IV Q4H PRN PRN Reason: NAUSEA/VOMITING Vital Signs - 8 hr 02/08/18 02/08/18 11:36 16:47 Temperature 98.0 F 98.8 F Pulse Rate 61 82 Respiratory 18 20 Rate Blood Pressure 115/47 144/59 (mmHg) O2 Sat by Pulse 99 96 Oximetry Oxygen Devices in Use Now: Nasal Cannula Appearance: Patient is an 87yo male who appears stated age and is sitting in the bed in NAD. Eyes: No Scleral Icterus, PERRLA Ears/Nose/Mouth/Throat: NL Teeth, Lips, Gums, Clear Oropharnyx, Mucous Membranes Moist Neck: NL Appearance and Movements; NL JVP, Trachea Midline Respiratory: Symmetrical Chest Expansion and Respiratory Effort, Clear to Auscultation Cardiovascular: NL Sounds; No Murmurs; No JVD, RRR, No Edema Abdominal: NL Sounds; No Tenderness; No Distention, No Hepatosplenomegaly Lymphatic: No Cervical Adenopathy Extremities: No Edema, No Clubbing, Cyanosis Skin: No Rash or Ulcers, No Nodules or Sclerosis Neurological: Alert and Oriented x 3, NL Sensation, NL Muscle Strength and Tone , - - CN II-XII intact. Result Diagrams: 02/08/18 04:00 02/08/18 04:00 Additional Lab and Data: Lab Results Assess/Plan/Problems-Billing Assessment: Patient is an 87yo male with a PMH for HTN, DMII who is here with an unprovoked PE and is stable on a heparin drip. - Patient Problems (1) Pulmonary embolism Current Visit: Yes Status: Acute Code(s): I26.99 - OTHER PULMONARY EMBOLISM WITHOUT ACUTE COR PULMONALE SNOMED Code(s): 93073207 Comment: - No hemodynamic instability. RV low end of normal function. - Mild hypoxia. No tachycardia. - Severely decreased functional capacity. - Continue heparin drip, plan to transition to NOAC in AM. (2) Weight loss Current Visit: Yes Status: Acute Comment: - Poor appetite and weight loss. - In conjunction in inflammatory markers and unprovoked PE is concerning for occult malignancy. - CTA shows no nodules. Recommend outpatient EGD and Colonoscopy. (3) Inflammation Current Visit: Yes Status: Acute Code(s): GVJ8910 - SNOMED Code(s): 109068859 Comment: - Elevated inflammatory markers with Iron panel consistent with AOCD. - Monitor H/H and trend markers in hospital. - No signs of active infection. (4) DM II (diabetes mellitus, type II), controlled Current Visit: Yes Status: Acute Code(s): E11.9 - TYPE 2 DIABETES MELLITUS WITHOUT COMPLICATIONS SNOMED Code(s): 19168585 Comment: - SSI - Moderate control. (5) HTN (hypertension) Current Visit: Yes Status: Acute Code(s): I10 - ESSENTIAL (PRIMARY) HYPERTENSION SNOMED Code(s): 95730705 Comment: - Normotensive. - Continue Doxazosin (6) DVT prophylaxis Current Visit: Yes Status: Acute Code(s): AGA5054 - SNOMED Code(s): 609247201 Comment: - Heparin Drip (7) Full code status Current Visit: Yes Status: Acute Code(s): Z78.9 - OTHER SPECIFIED HEALTH STATUS SNOMED Code(s): 129183452 Status and Disposition: Inpatient for PE treatment.
[2018-02-08] MEDS: Doxazosin TAB* 2 MG PO SCH (21:40)
[2018-02-09 06:31] LABS: ABS Basophils 0 10^3/ul (0-0.2); ABS Eosinophils 0 10^3/ul (0-0.6); ABS Lymphocytes 1.2 10^3/ul (1.0-4.8); ABS Monocytes 0.8 10^3/ul (0-0.8); ABS Neutrophils 6.6 10^3/ul (1.5-7.7); ABS Nucleated RBC 0 10^3/ul; Eosinophil % 0.3 % (0-6); Hematocrit 26 % (42-52); Lymphocyte % 14.3 % (25-47); Mean Corpuscular HGB Conc 35 g/dl (31-36); Mean Corpuscular Hemoglobin 32 pg (27-31); Mean Corpuscular Volume 92 fL (80-94); Mean Platelet Volume 8.2 um3 (7.4-10.4); Nucleated Red Blood Cells % 0; Platelet Count 170 10^3/ul (150-450); Red Blood Count 2.85 10^6/ul (4.00-5.40); Red Cell Distribution Width 12 % (10.5-15); White Blood Count 8.6 10^3/ul (3.5-10.8)
[2018-02-09 06:48] LABS: EGFR Non-African American 59.1 (>60)
[2018-02-09] MEDS ORDERED: Magnesium Sulfate 2 GM IV* 2 GM/50 ML BAG IVPB ONE (07:02)
[2018-02-09] MEDS ORDERED: Dextrose 50% Syringe 50 ML* 25 GM/50 ML SYRINGE IV PUSH PRN (07:04)
[2018-02-09] MEDS: Aspirin EC TAB* 81 MG TAB.EC PO SCH (08:29)
[2018-02-09] MEDS: Cholecalciferol TAB* 400 UNIT PO SCH (08:29)
[2018-02-09] MEDS: Insulin LISPRO* 1 UNITS UNIT SUBCUT SCH ×4 (08:30→21:11)
[2018-02-09] MEDS: Cyanocobalamin TAB* 500 MCG PO SCH (08:30)
[2018-02-09] MEDS ORDERED: Rivaroxaban TAB(*) 15 MG PO SCH (09:00)
[2018-02-09] MEDS: Rivaroxaban TAB(*) 15 MG PO SCH ×2 (09:57→17:46)
[2018-02-09] MEDS ORDERED: Magnesium Sulfate IV* 2 GM in NS 0.9% 100 ML* 100 ML IVPB ONE (10:00)
--- NOTE | 2018-02-09 17:17 | PN ---
Subjective Date of Service: 02/09/18 Interval History: Patient is feeling better and anxious to go home. Was able to ambulate down [place] and back yesterday with SOB on return trip. This is dramatic improvement over preadmission status. Denies CP, SOB, N/V, F/C, diarrhea, abdominal pain, dysuria, dizziness, presyncope, or other pain. Discussed insurance coverage with family and they would like to go with Xarelto despite cost. Family History: Unchanged from Admission Social History: Unchanged from Admission Past Medical History: Unchanged from Admission Objective Active Medications: Acetaminophen (Tylenol Tab*) 650 mg PO Q4H PRN PRN Reason: FEVER/PAIN Al Hydrox/Mg Hydrox/Simethicone (Maalox Plus*) 30 ml PO Q6H PRN PRN Reason: INDIGESTION Albuterol (Ventolin 2.5 Mg/3 Ml Neb.Kimmie*) 2.5 mg INH [id number] AWAKE PRN PRN Reason: sob/wheezing Aspirin (Aspirin Ec Tab*) 81 mg PO DAILY [facility] Last Admin: 02/09/18 08:29 Dose: 81 mg Atorvastatin Calcium (Lipitor*) 10 mg PO QPM [facility] Last Admin: 02/08/18 18:00 Dose: 10 mg Cholecalciferol (Vitamin D Tab*) 400 unit PO DAILY [facility] Last Admin: 02/09/18 08:29 Dose: 400 unit Cyanocobalamin (Vitamin B12 Tab*) 1,000 mcg PO DAILY [facility] Last Admin: 02/09/18 08:30 Dose: 1,000 mcg Dextrose (D50w Syringe 50 Ml*) 12.5 gm IV PUSH .FOR FS < 60 - SS PRN PRN Reason: FS < 60 Doxazosin Mesylate (Cardura Tab*) 4 mg PO BEDTIME REPLACED BY [facility] Last Admin: 02/08/18 21:40 Dose: 4 mg Insulin Human Lispro (Humalog*) 0 units SUBCUT ACHS REPLACED BY [facility]; Protocol Last Admin: 02/09/18 12:08 Dose: 1 units Ondansetron HCl (Zofran Inj*) 4 mg IV Q4H PRN PRN Reason: NAUSEA/VOMITING Rivaroxaban (Xarelto(*)) 15 mg PO BID WITH MEALS REPLACED BY [facility] Last Admin: 02/09/18 09:57 Dose: 15 mg Vital Signs - 8 hr 02/09/18 02/09/18 11:23 15:28 Temperature 97.3 F 99.0 F Pulse Rate 69 81 Respiratory 16 26 Rate Blood Pressure 117/49 136/50 (mmHg) O2 Sat by Pulse 98 96 Oximetry Oxygen Devices in Use Now: None Appearance: Patient is an 87yo male who appears stated age and is sitting in the bed in NAD. Eyes: No Scleral Icterus, PERRLA Ears/Nose/Mouth/Throat: NL Teeth, Lips, Gums, Clear Oropharnyx, Mucous Membranes Moist Neck: NL Appearance and Movements; NL JVP, Trachea Midline Respiratory: Symmetrical Chest Expansion and Respiratory Effort, Clear to Auscultation Cardiovascular: NL Sounds; No Murmurs; No JVD, RRR, No Edema Abdominal: NL Sounds; No Tenderness; No Distention, No Hepatosplenomegaly Lymphatic: No Cervical Adenopathy Extremities: No Edema, No Clubbing, Cyanosis Skin: No Rash or Ulcers, No Nodules or Sclerosis Neurological: Alert and Oriented x 3, NL Sensation, NL Muscle Strength and Tone , - - CN II-XII intact. Result Diagrams: 02/09/18 06:13 02/09/18 06:13 Additional Lab and Data: Lab Results Assess/Plan/Problems-Billing Assessment: Patient is an 87yo male with a PMH for HTN, DMII who is here with an unprovoked PE and is stable on a heparin drip. - Patient Problems (1) Pulmonary embolism Current Visit: Yes Status: Acute Code(s): I26.99 - OTHER PULMONARY EMBOLISM WITHOUT ACUTE COR PULMONALE SNOMED Code(s): 23821307 Comment: - No hemodynamic instability. RV low end of normal function. - No more hypoxia No tachycardia. - Mildly decreased functional capacity. PT/OT - NOAC, will continue BID for 21 total days. (2) Weight loss Current Visit: Yes Status: Acute Comment: - Poor appetite and weight loss. - In conjunction in inflammatory markers and unprovoked PE is concerning for occult malignancy. - CTA shows no nodules. Recommend outpatient EGD and Colonoscopy. - Inpatient CT abdomen and pelvic for masses. (3) Inflammation Current Visit: Yes Status: Acute Code(s): UHX0995 - SNOMED Code(s): 367241925 Comment: - Elevated inflammatory markers with Iron panel consistent with AOCD. - Monitor H/H and trend markers in hospital. - No signs of active infection. (4) DM II (diabetes mellitus, type II), controlled Current Visit: Yes Status: Acute Code(s): E11.9 - TYPE 2 DIABETES MELLITUS WITHOUT COMPLICATIONS SNOMED Code(s): 67762292 Comment: - SSI - Moderate control. (5) HTN (hypertension) Current Visit: Yes Status: Acute Code(s): I10 - ESSENTIAL (PRIMARY) HYPERTENSION SNOMED Code(s): 46094744 Comment: - Normotensive. - Continue Doxazosin (6) DVT prophylaxis Current Visit: Yes Status: Acute Code(s): YJM0436 - SNOMED Code(s): 570283083 Comment: - Xarelto (7) Full code status Current Visit: Yes Status: Acute Code(s): Z78.9 - OTHER SPECIFIED HEALTH STATUS SNOMED Code(s): 146050778 Status and Disposition: Inpatient for PE treatment.
[2018-02-09 17:42] LABS: Urine Appearance Clear; Urine Blood Negative (Negative); Urine Color Yellow; Urine Ketones Negative (Negative); Urine Protein Negative (Negative); Urine Red Blood Cell Trace(0-2/hpf) (Absent); Urine Urobilinogen Negative (Negative); Urine White Blood Cell Trace(0-5/hpf) (Absent)
[2018-02-09] MEDS: Atorvastatin* 10 MG TAB PO SCH (17:47)
[2018-02-09] MEDS: Doxazosin TAB* 2 MG PO SCH (21:10)
--- NOTE | 2018-02-09 23:23 | RAD ---
EXAM: CT Abdomen and Pelvis Without Intravenous Contrast CLINICAL HISTORY: 87 years old, male; Signs and symptoms; Other: Concern for malignancy; Prior surgery TECHNIQUE: Axial computed tomography images of the abdomen and pelvis without intravenous contrast. All CT scans at this facility use at least one of these dose optimization techniques: automated exposure control; mA and/or kV adjustment per patient size (includes targeted exams where dose is matched to clinical indication); or iterative reconstruction. Coronal and sagittal reformatted images were created and reviewed. COMPARISON: No relevant prior studies available. FINDINGS: Lung bases: Peripheral consolidation involving the lateral aspect of the right lower lung. This structure has multiple air-filled cysts with associated pleural thickening. Pleural space: Small right pleural effusion with associated area of consolidation. The left lung base is clear. ABDOMEN: Liver: Unremarkable. Gallbladder and bile ducts: Cholecystectomy. No pathologic distention the common bile duct. Pancreas: Unremarkable. No ductal dilation. Spleen: Unremarkable. No splenomegaly. Adrenals: Unremarkable. No mass. Kidneys and ureters: Unremarkable. No obstructing stones. No hydronephrosis. Stomach and bowel: No bowel obstruction. Colonic diverticulosis without evidence of an acute diverticulitis. No bowel wall thickening. PELVIS: Appendix: No findings to suggest acute appendicitis. Bladder: Unremarkable. No stones. Reproductive: Moderate enlargement of the prostate gland. ABDOMEN and PELVIS: Intraperitoneal space: Unremarkable. No free air. No significant fluid collection. Bones/joints: Grade 1 anterolisthesis of L4 onto L5. This is associated with moderate degenerative changes of both facet joints and disc space. No acute fracture. No dislocation. Soft tissues: Unremarkable. Vasculature: Atheromatous changes involving the abdominal aorta and iliac arteries. No aneurysmal dilatation. Lymph nodes: Unremarkable. No enlarged lymph nodes. IMPRESSION: No acute findings. On a recent CT scan dated 02/07/2018 the patient was found to have pulmonary embolic disease. There is a small right pleural effusion with associated basilar consolidation and volume loss.
[2018-02-10 06:25] LABS: ABS Basophils 0 10^3/ul (0-0.2); ABS Eosinophils 0 10^3/ul (0-0.6); ABS Monocytes 0.6 10^3/ul (0-0.8); ABS Neutrophils 5.8 10^3/ul (1.5-7.7); ABS Nucleated RBC 0 10^3/ul; Eosinophil % 0.6 % (0-6); Hematocrit 27 % (42-52); Hemoglobin 9.5 g/dl (14.0-18.0); Lymphocyte % 13.9 % (25-47); Mean Corpuscular HGB Conc 35 g/dl (31-36); Mean Corpuscular Hemoglobin 32 pg (27-31); Mean Corpuscular Volume 91 fL (80-94); Mean Platelet Volume 8.5 um3 (7.4-10.4); Nucleated Red Blood Cells % 0; Platelet Count 179 10^3/ul (150-450); Red Blood Count 2.96 10^6/ul (4.00-5.40); Red Cell Distribution Width 12 % (10.5-15); White Blood Count 7.5 10^3/ul (3.5-10.8)
[2018-02-10 06:44] LABS: EGFR Non-African American 61.5 (>60)
[2018-02-10] MEDS: Cyanocobalamin TAB* 500 MCG PO SCH (08:26)
[2018-02-10] MEDS: Insulin LISPRO* 1 UNITS UNIT SUBCUT SCH ×2 (08:26→12:45)
[2018-02-10] MEDS: Aspirin EC TAB* 81 MG TAB.EC PO SCH (08:26)
[2018-02-10] MEDS: Rivaroxaban TAB(*) 15 MG PO SCH ×2 (08:26→16:11)
[2018-02-10] MEDS: Cholecalciferol TAB* 400 UNIT PO SCH (08:26)
[2018-02-10 16:59] VITALS: BP 126/54
--- NOTE | 2018-02-12 05:57 | DS ---
CC: Dr. Carlos Culver * DISCHARGE SUMMARY: DATE OF ADMISSION: 02/07/18 DATE OF DISCHARGE: 02/10/18 PRIMARY CARE PROVIDER: Carlos Culver MD. MY ATTENDING WHILE IN THE HOSPITAL: Sasha Addison MD.* (DICTATED BY EFREN POSEY) PRIMARY DISCHARGE DIAGNOSIS: Multiple subsegmental pulmonary embolism. SECONDARY DIAGNOSES: 1. Hypertension. 2. Type 2 diabetes mellitus. 3. Hyperlipidemia. 4. Arthritis. 5. Urethral strictures. STUDIES DONE WHILE IN HOSPITAL: Electrocardiogram from 02/07/18 read as normal sinus rhythm, left axis deviation, poor quality study, T-wave flattening in lead III, no other significant abnormalities, QTc 417, rate of 73, no hypertrophy or enlargement, there is a change from previous EKG with resolution of borderline ST segment elevations. Chest, thoracic CTA from 02/07/18 read as pulmonary emboli noted in the right lower lobe, multiple middle lobe and right upper lobe arteries as well as left lower lobe pulmonary artery. Venous Doppler study on 02/08/18 read as limited visualization of the peroneal vein to the left calf which may be technical or may represent occlusion of the peroneal vein of uncertain acuity, otherwise there is no deep venous thrombosis of the lower extremities bilaterally. Transesophageal echocardiogram on 02/08/18 read as mild concentric left ventricular hypertrophy observed, estimated ejection fraction of 55 to 60%, there is E to A reversal in the mitral valve flow pattern suggestive of diastolic dysfunction, left atrium is mildly dilated, left and right ventricular wall thickness mildly increased, right ventricular global systolic function is low normal, aortic valve leaflets are mildly thickened, no significant valvular disease. Abdomen and pelvis CT 02/09/18 read as no acute findings. Recent CT scan dated 02/07/18 the patient was found to have pulmonary embolic disease, there is a small right pleural effusion with associated basilar consolidation and volume loss. MEDICATIONS AT DISCHARGE: 1. Doxazosin 4 mg p.o. at bedtime. 2. Aspirin 81 mg p.o. daily. 3. Simvastatin 20 mg p.o. q.p.m. 4. Metformin 500 mg p.o. b.i.d. 5. Tylenol 650 mg p.o. q.6 hours as needed. 6. Vitamin D 400 units p.o. daily. 7. Vitamin B12 1000 mcg p.o. daily. 8. Xarelto starter pack. Medication discontinued at discharge lisinopril 20 mg p.o. daily. HOSPITAL COURSE: This is a brief summary of the patient's presentation. For more details, please see the history and physical from EFREN yL on 02/07/18. In brief, the patient is an 87-year-old male with past medical history significant for the above who presented to the emergency department with a 2-week history of worsening shortness of breath with exertion that has been getting worse for two weeks. He has had no history of substernal chest pain, calf pain or DVT or PE. Patient had no other significant recent illnesses. Patient had no symptoms in the past. Patient is evaluated by his primary care doctor for hypotension and back pain without shortness of breath and was sent to the emergency department for lab work which was essentially normal. In the emergency department, the patient was saturating well on room air; however, he had a D-dimer above 1000 and was sent for a CTA which showed pulmonary emboli as above, the patient was started on heparin drip. The patient was clinically stable. The patient was admitted to the floor. The patient's Cardura was continued and lisinopril was held. The patient had both lower extremity Doppler and transesophageal echocardiogram showing no significant left side dysfunction. The patient was continued on heparin drip until the morning of 02/09/18 at which time he was switched to Xarelto. The patient during his hospitalization needed to be placed briefly on 2 L of oxygen. From borderline hypotension, the patient had significant improvement in his functional capacity which improved even more greatly over the course of his hospitalization. The patient was found to be moderately anemic with an elevated CRP, ESR as well as an increased creatinine. Creatinine trending down throughout his hospitalization to around his baseline. The patient had an iron panel consistent with anemia of chronic disease. The patient had vitamin B12 level ordered as well which was normal. The patient had significantly elevated CRP and ESR. Patient had significantly decreased appetite and had been losing some weight. Due to the patient having the constellation of symptoms of weight loss, unprovoked DVT, elevated inflamatory markers, and iron studies consistent with anemia of chronic disease, there was concern for occult malignancy. The patient had CT of the abdomen and pelvis in addition to a CT of the chest which was read as above showed no concern for malignancy, no lung masses, no lymphadenopathy. Patient ambulated around the unit without difficulty on discharge. Patient was started on Xarelto on 02/10/18. PHYSICAL EXAMINATION ON THE DAY OF DISCHARGE: General: The patient is an 87- year- old male who appears stated age. Vital Signs: Temperature 98.5, pulse 66 , respiratory rate 18, oxygen saturation 97% on room air, blood pressure 126/ 54. HEENT: Head: Normocephalic, atraumatic. Sclerae anicteric. No conjunctival injection. Nasal mucosa is moist. Oral mucosa is moist. No pharyngeal erythema, discharge, or exudate. Neck: Supple, no thyromegaly, no lymphadenopathy. No carotid bruits auscultated. No JVD. Cardiac: Regular rate and rhythm. No clicks, murmurs, gallops, or rubs. Pulses 2+ in the bilateral dorsalis pedis, posterior tibialis, and radial areas. No bilateral lower extremity edema noted. Respiratory: Clear to auscultation bilaterally. No wheezes, rales, or rhonchi. Good air exchange bilaterally. Abdomen: Soft, nontender, nondistended. Bowel sounds present. Normoactive in all 4 quadrants. No hepatosplenomegaly. No abdominal bruits auscultated. No hepatojugular reflux. Skin: Clean, dry, intact. No rash. Neuro: Cranial nerves II through XII intact. No focal deficits. Alert and oriented x3. Psychiatric: Pleasant and cooperative. LABORATORY DATA ON THE DAY OF DISCHARGE: White blood cell count 7.5, hemoglobin 9.5, hematocrit 27, MCH 32, platelet count 179. Sodium 134, potassium 4.2, chloride 107, carbon dioxide 22, anion gap 5, BUN 18, creatinine 1.13, glucose 138, calcium 7.8, magnesium 2.0, CRP 161.84. DISCHARGE PLAN: The patient will be discharged to home. The patient will be under the care of his daughter who lives 4 doors away. The patient is functionally independent and no hypoxia at this time, the patient will be continued on Xarelto at 15 mg twice daily for 21 days and then ongoing for 20 mg daily. The patient will take these with meal. The patient should avoid immobilization. The patient should attempt to eat a high calorie diet. Due to lack of appetite, the patient should hold his lisinopril. The patient should follow up closely with his primary care provider to assess for need for resumption of his medications. The patient should discuss with his primary care provider screening for occult malignancy. The patient while in the hospital had a negative stool occult blood. Consideration for colonoscopy and endoscopy should be made as the patient has had a CT scan of the abdomen and has no other obvious cancers. Patient should return to the hospital for alarming symptoms such as passing out, chest pain, shortness of breath, uncontrolled fevers not responsive to medication or other alarming symptoms. The patient should have a heart-healthy diet without caffeine and engage in activities as tolerated. TIME SPENT: Approximately 75 minutes was spent on this discharge of this patient, 45 of which was spent [id number] with the patient obtaining history and physical and discussing treatment plan and coordinating care. EFREN POSEY [id number]/CPS #: [id number] RONDA
== END 2018-02-10 18:55 | disposition home or self-care (01) | DRG 176 ==
LOC: ED 10:37 → MEDTELE 15:59 → OBSVTOIN 02-09 09:53
PROVIDERS: ADMIT Student in an Organized Health Care Education/Training Program; ATTEND Internal Medicine
DX: I26.99 Other pulmonary embolism without acute cor pulmonale (principal); Z77.090 Contact with and (suspected) exposure to asbestos; I10 Essential (primary) hypertension; E11.9 Type 2 diabetes mellitus without complications; R09.02 Hypoxemia; N35.9 Urethral stricture, unspecified; N40.0 Benign prostatic hyperplasia without lower urinary tract symptoms; M19.90 Unspecified osteoarthritis, unspecified site; E78.5 Hyperlipidemia, unspecified; R63.4 Abnormal weight loss; Z98.42 Cataract extraction status, left eye; Z98.41 Cataract extraction status, right eye; Z23 Encounter for immunization; Z97.4 Presence of external hearing-aid; Z90.89 Acquired absence of other organs; Z87.891 Personal history of nicotine dependence; Z90.49 Acquired absence of other specified parts of digestive tract; Z83.6 Family history of other diseases of the respiratory system; Z68.28 Body mass index [BMI] 28.0-28.9, adult
CPT/HCPCS: 36415; 71275; 74176; 80048; 80053; 81003; 81015; 82272; 82607; 82728; 82746; 83540; 83550; 83605; 83735; 83880; 83921; 84145; 84484; 85025; 85379; 85610; 85652; 85730; 86140; 87086; 90686; 93005; 93306; 93970; 99284; A9270-GY; G0378; G8978-GP-CI; G8979-GP-CI; G8980-GP-CI; J1644; J3475; Q9967

== ENCOUNTER 2019-05-14 09:27 | Emergency (ER) | payer MEDICARE ==
[2019-05-14 09:38] VITALS: BP 121/47
--- NOTE | 2019-05-14 10:21 | UC ---
Truncal Trauma HPI - HPI Summary HPI Summary: LAST NIGHT PATIENT STOOD UP FROM HIS CHAIR AND AFTER ABOUT 2 STEPS FELT DIZZY AND FELL ONTO HIS LEFT SIDE STRIKING THE LINOLEUM FLOOR. HE STATES HIS DAUGHTER THINKS HE GOT UP AND MOVED TOO QUICKLY. HE DENIES ANY HEAD TRAUMA OR LOC. HAS LEFT RIB PAIN WITH DEEP BREATHS, COUGHING, SNEEZING. - History Of Current Complaint Chief Complaint: UCTrauma Stated Complaint: RIB INJURY Time Seen by Provider: 05/14/19 09:43 Hx Obtained From: Patient Onset/Duration: Sudden Onset, Lasting Hours, Still Present Onset Of Pain: Immediate Severity Initially: Moderate Severity Currently: Moderate Pain Intensity: 10 Pain Scale Used: 0-10 Numeric Mechanism Of Injury: Fall From A Standing Position Aggravating Factor(s): Movement, Deep Breathing, Cough Alleviating factor(s): Rest Associated Signs And Symptoms: Positive: Negative - Allergies/Home Medications Allergies/Adverse Reactions: Allergies Allergy/AdvReac Type Severity Reaction Status Date / Time No Known Allergies Allergy Verified 02/07/18 11:13 PMH/Surg Hx/FS Hx/Imm Hx Endocrine History: Diabetes Cardiovascular History: Hypertension - Surgical History Surgical History: Yes Surgery Procedure, Year, and Place: 1963 - HERNIA SURGERY. - GALL BLADDER REMOVED. APPENDECTOMY CHILD. scar tissue in urethra x3, [facility] - Family History Known Family History: Negative: Hypertension, Diabetes - Social History Alcohol Use: None Substance Use Type: None Smoking Status (MU): Former Smoker Amount Used/How Often: 1/2 pack a day for15 yrs When Did the Patient Quit Smoking/Using Tobacco: 1963 - Immunization History Most Recent Influenza Vaccination: 02/08/18 Most Recent Pneumonia Vaccination: unknown Review of Systems All Other Systems Reviewed And Are Negative: Yes Constitutional: Positive: Negative Skin: Positive: Negative Respiratory: Positive: Other - PAIN WITH DEEP INSPIRATION Cardiovascular: Positive: Negative Gastrointestinal: Positive: Negative Musculoskeletal: Positive: Other: - LEFT RIB CAGE PAIN Physical Exam Triage Information Reviewed: Yes Appearance: Well-Appearing, No Pain Distress, Well-Nourished Vital Signs: Initial Vital Signs Temp 98.2 F 05/14/19 09:34 Pulse 62 05/14/19 09:34 Resp 18 05/14/19 09:34 BP 121/47 05/14/19 09:34 Pulse Ox 100 05/14/19 09:34 Vital Signs Reviewed: Yes Eyes: Positive: Conjunctiva Clear ENT: Positive: Hearing grossly normal Neck: Positive: Supple Respiratory: Positive: No respiratory distress, No accessory muscle use Cardiovascular: Positive: Pulses Normal Abdomen Description: Positive: Soft Musculoskeletal: Positive: No Edema, Other: - TTP LEFT RIB CAGE MID AXILLARY LINE. Neurological: Positive: Alert Psychological: Positive: Age Appropriate Behavior Skin: Negative: Rashes Diagnostics - Radiology LEFT RIB XRAYS Radiology Interpretation Completed By: Radiologist Summary of Radiographic Findings: NO EVIDENCE FOR FRACTURE. Truncal Trauma Course/Dx - Course Course Of Treatment: LEFT-SIDED RIB X-RAYS AND CHEST X-RAY UNREMARKABLE. LIKELY RIB CONTUSION FROM FALL. ADVISED DEEP BREATHS, TYLENOL NEEDED FOR DISCOMFORT. TO THE ER WITHOUT FAIL IF HE DEVELOPS SHORTNESS OF BREATH, WORSENING PAIN, FEVER OR ANY OTHER CONCERNING SYMPTOMS. - Differential Dx/Diagnosis Provider Diagnosis: Contusion of rib on left side Discharge ED - Sign-Out/Discharge Documenting (check all that apply): Patient Departure All imaging exams completed and their final reports reviewed: Yes - Discharge Plan Condition: Stable Disposition: HOME Patient Education Materials: Rib Contusion (ED) Referrals: Sylwia Ndiaye MD [Primary Care Provider] - If Needed Additional Instructions: XRAYS TODAY NEGATIVE FOR ANY BROKEN BONES. RIB INJURIES: You have been diagnosed as having bruised ribs. It will usually take four to six weeks for these injured ribs to heal. Sometimes, rib belts or anesthetic injections of the chest wall help reduce the pain. You should cough or take a deep breath at least every hour or two to prevent lung complications. You should not engage in any strenuous physical activity until released by your physician. The usual rule is "if it hurts, don't do it." If you have a rib fracture it can lead to serious lung complications including lung collapse, hemorrhage, and pneumonia. You should go to the ED if any of the following occur: (1) Fever or chills. (2) Persistent cough, coughing up blood, or shortness of breath. (3) Increasing pain. (4) Weakness, lightheadedness, or fainting. Be sure to take slow deep breaths several times daily to help keep your lungs expanded. TAKE TYLENOL NEEDED FOR PAIN. - Billing Disposition and Condition Condition: STABLE Disposition: Home
== END 2019-05-14 10:43 | disposition home or self-care (01) ==
LOC: UCEAST 09:27
DX: S20.212A Contusion of left front wall of thorax, initial encounter (principal); E11.9 Type 2 diabetes mellitus without complications; I10 Essential (primary) hypertension; Z87.891 Personal history of nicotine dependence; W01.198A Fall on same level from slipping, tripping and stumbling with subsequent striking against other object, initial encounter; Y92.9 Unspecified place or not applicable
CPT/HCPCS: 99211; G0463

== ENCOUNTER 2020-10-30 11:37 | Inpatient (IN) ==
[2020-10-30 14:15] LABS: ABS Lymphocytes 1.5 10^3/ul (1.0-4.8); ABS Monocytes 0.3 10^3/ul (0-0.8); Eosinophil % 0.3 %; Hematocrit 31 % (42-52); Hemoglobin 10.4 g/dL (14.0-18.0); Lymphocyte % 21.5 %; Mean Corpuscular HGB Conc 33 g/dL (31-36); Mean Corpuscular Hemoglobin 32 pg (27-31); Mean Corpuscular Volume 97 fL (80-94); Mean Platelet Volume 9.1 fL (7.4-10.4); Platelet Count 174 10^3/uL (150-450); Red Blood Count 3.23 10^6 /uL (4.18-5.48); Red Cell Distribution Width 13 % (10-15); White Blood Count 6.8 10^3/uL (3.5-10.8)
[2020-10-30 14:31] LABS: ALT 19 U/L (7-52); AST 23 U/L (13-39); Albumin 3.9 g/dL (3.2-5.2); Albumin/Globulin Ratio 1.3 (1-3); Alkaline Phosphatase 73 U/L (35-149); Blood Urea Nitrogen 58 mg/dL (6-24); CO2 Carbon Dioxide 24 mmol/L (22-32); Calcium 9.5 mg/dL (8.6-10.3); Chloride 110 mmol/L (101-111); EGFR African American 38.5 (>60); EGFR Non-African American 31.8 (>60); Globulin 2.9 g/dL (2-4); Glucose 103 mg/dL (70-100); Sodium 138 mmol/L (135-145); Total Protein 6.8 g/dL (6.4-8.9)
[2020-10-30 14:33] LABS: Anion Gap 4 mmol/L (2-11); Potassium 5.2 mmol/L (3.5-5.0)
[2020-10-30] MEDS ORDERED: NS 0.9% 1000 ml BAG 1,000 ML IV ONE (14:54)
[2020-10-30 15:03] LABS: Urine Appearance Clear; Urine Bilirubin Negative (Negative); Urine Blood Negative (Negative); Urine Color Yellow; Urine Glucose Negative (Negative); Urine Ketones Negative (Negative); Urine Nitrite Negative (Negative); Urine Protein Negative (Negative); Urine Specific Gravity 1.015 (1.002-1.030); Urine Urobilinogen Negative (Negative)
[2020-10-30 15:13] LABS: Acetaminophen < 15 mcg/mL; Alcohol, S < 10 mg/dL (<10); Salicylate < 2.50 mg/dL (<30)
[2020-10-30] MEDS: CMC:Simvastatin 20 mg TAB (NF) PO SCH (20:36)
[2020-10-31 06:14] LABS: ABS Lymphocytes 1.6 10^3/ul (1.0-4.8); ABS Monocytes 0.4 10^3/ul (0-0.8); ABS Neutrophils 3.3 10^3/ul (1.5-7.7); Eosinophil % 0.9 %; Hematocrit 29 % (42-52); Hemoglobin 9.6 g/dL (14.0-18.0); Mean Corpuscular HGB Conc 33 g/dL (31-36); Mean Corpuscular Hemoglobin 32 pg (27-31); Mean Corpuscular Volume 97 fL (80-94); Mean Platelet Volume 8.7 fL (7.4-10.4); Platelet Count 159 10^3/uL (150-450); Red Blood Count 2.98 10^6 /uL (4.18-5.48); Red Cell Distribution Width 13 % (10-15); White Blood Count 5.4 10^3/uL (3.5-10.8)
[2020-10-31 06:29] LABS: EGFR African American 43.5 (>60); EGFR Non-African American 35.9 (>60); Potassium 4.9 mmol/L (3.5-5.0)
[2020-10-31 09:26] LABS: Folate 16.9 ng/mL (5.90-24.80)
[2020-10-31] MEDS: Cholecalciferol (VIT D3) 400 units TAB PO SCH (10:14)
[2020-10-31] MEDS: CMC:Simvastatin 20 mg TAB (NF) PO SCH (17:42)
[2020-11-01 05:28] LABS: ABS Lymphocytes 1.8 10^3/ul (1.0-4.8); ABS Monocytes 0.4 10^3/ul (0-0.8); ABS Neutrophils 3.3 10^3/ul (1.5-7.7); Eosinophil % 0.8 %; Hematocrit 28 % (42-52); Hemoglobin 9.4 g/dL (14.0-18.0); Lymphocyte % 32.2 %; Mean Corpuscular HGB Conc 34 g/dL (31-36); Mean Corpuscular Hemoglobin 33 pg (27-31); Mean Corpuscular Volume 97 fL (80-94); Mean Platelet Volume 8.9 fL (7.4-10.4); Platelet Count 154 10^3/uL (150-450); Red Blood Count 2.85 10^6 /uL (4.18-5.48); Red Cell Distribution Width 13 % (10-15); White Blood Count 5.6 10^3/uL (3.5-10.8)
[2020-11-01 05:47] LABS: Calcium 8.8 mg/dL (8.6-10.3); EGFR African American 45.5 (>60); EGFR Non-African American 37.6 (>60); Potassium 4.3 mmol/L (3.5-5.0)
[2020-11-01] MEDS: Cholecalciferol (VIT D3) 400 units TAB PO SCH (08:20)
[2020-11-01] MEDS ORDERED: NS 0.9% 1000 ml BAG 1,000 ML IV SCH (09:45)
[2020-11-01 14:42] LABS: TSH Ultra Thyroid Stim Horm 1.01 mcIU/mL (0.34-5.60)
[2020-11-01] MEDS: CMC:Simvastatin 20 mg TAB (NF) PO SCH (18:01)
[2020-11-02 05:02] LABS: ABS Eosinophils 0.1 10^3/ul (0-0.6); ABS Lymphocytes 1.8 10^3/ul (1.0-4.8); ABS Monocytes 0.4 10^3/ul (0-0.8); ABS Neutrophils 3.5 10^3/ul (1.5-7.7); Eosinophil % 1.3 %; Hematocrit 27 % (42-52); Lymphocyte % 31.7 %; Mean Corpuscular HGB Conc 33 g/dL (31-36); Mean Corpuscular Hemoglobin 32 pg (27-31); Mean Corpuscular Volume 97 fL (80-94); Mean Platelet Volume 8.9 fL (7.4-10.4); Platelet Count 151 10^3/uL (150-450); Red Blood Count 2.78 10^6 /uL (4.18-5.48); Red Cell Distribution Width 13 % (10-15); White Blood Count 5.8 10^3/uL (3.5-10.8)
[2020-11-02 05:36] LABS: Calcium 8.3 mg/dL (8.6-10.3); EGFR African American 41.1 (>60); Magnesium 1.9 mg/dL (1.9-2.7); Potassium 4.3 mmol/L (3.5-5.0)
[2020-11-02] MEDS ORDERED: ceFAZolin 2 GM PREMIX 2 GM/50 ML BAG IVPB ONE (10:06)
[2020-11-02] MEDS ORDERED: ceFAZolin VIAL 1 GM in NS 0.9% 50 ML 50 ML IVPB ONE (10:06)
[2020-11-02] MEDS: Cholecalciferol (VIT D3) 400 units TAB PO SCH (10:13)
[2020-11-02] MEDS ORDERED: ceFAZolin VIAL 1 GM in NS *SYRINGE* 10 ML IVPB ONE (10:14)
[2020-11-02] MEDS ORDERED: Lidocaine 1% VIAL 10 MG/ML VIAL ONE (13:40)
[2020-11-02] MEDS ORDERED: fentaNYL 100 mcg/2 ml 50 MCG/ML VIAL ONE (13:55)
[2020-11-02] MEDS ORDERED: Midazolam 5 mg/5 ml VIAL 1 mg/ml 5 ml VIAL (5 mg) ONE (13:55)
[2020-11-02] MEDS ORDERED: Magnesium Sulfate 2 gm BAG 2 GM/50 ML BAG IVPB ONE (14:19)
[2020-11-02] MEDS: CMC:Simvastatin 20 mg TAB (NF) PO SCH (16:37)
[2020-11-02] MEDS: NS 0.9% 1000 ml BAG 1,000 ML IV SCH (16:41)
[2020-11-02] MEDS ORDERED: Haloperidol 5 mg/ml SDV IV/IM 5 MG/ML AMP IV SLOW PU ONE (17:26)
[2020-11-02] MEDS ORDERED: Haloperidol 5 mg/ml SDV IV/IM 5 MG/ML AMP ONE (17:31)
[2020-11-02] MEDS ORDERED: Lorazepam PYXIS KEY PRN (17:34)
[2020-11-02] MEDS ORDERED: LORazepam 2 mg VIAL 1 ml IV PUSH ONE (17:35)
[2020-11-02] MEDS: ceFAZolin VIAL 1 GM in NS 0.9% 50 ML 50 ML IVPB SCH (21:57)
[2020-11-03] MEDS: NS 0.9% 1000 ml BAG 1,000 ML IV SCH ×2 (05:59→20:26)
[2020-11-03] MEDS: ceFAZolin VIAL 1 GM in NS 0.9% 50 ML 50 ML IVPB SCH ×2 (05:59→14:27)
[2020-11-03 06:35] LABS: Hematocrit 30 % (42-52); Hemoglobin 9.9 g/dL (14.0-18.0); Mean Corpuscular HGB Conc 34 g/dL (31-36); Mean Corpuscular Hemoglobin 33 pg (27-31); Mean Corpuscular Volume 97 fL (80-94); Mean Platelet Volume 8.8 fL (7.4-10.4); Platelet Count 158 10^3/uL (150-450); Red Blood Count 3.04 10^6 /uL (4.18-5.48); Red Cell Distribution Width 13 % (10-15); White Blood Count 5.3 10^3/uL (3.5-10.8)
[2020-11-03 07:03] LABS: Calcium 8.6 mg/dL (8.6-10.3); EGFR African American 51.3 (>60); EGFR Non-African American 42.4 (>60); Magnesium 2.3 mg/dL (1.9-2.7); Potassium 4.1 mmol/L (3.5-5.0)
[2020-11-03] MEDS: Cholecalciferol (VIT D3) 400 units TAB PO SCH (11:19)
[2020-11-03] MEDS: CMC:Simvastatin 20 mg TAB (NF) PO SCH (17:53)
[2020-11-03] MEDS ORDERED: Lorazepam PYXIS KEY PRN (20:43)
[2020-11-03] MEDS ORDERED: LORazepam 2 mg VIAL 1 ml IV PUSH ONE (20:44)
[2020-11-03] MEDS ORDERED: LORazepam 2 mg VIAL 1 ml ONE (20:50)
[2020-11-04] MEDS: Cholecalciferol (VIT D3) 400 units TAB PO SCH (08:18)
[2020-11-04] MEDS ORDERED: COVID-19 VACCINE, AD26(JANSSEN)/PF 0.5 ML IM ONE (15:00)
[2020-11-04] MEDS: CMC:Simvastatin 20 mg TAB (NF) PO SCH (17:19)
[2020-11-04] MEDS ORDERED: LORazepam 2 mg VIAL 1 ml IV PUSH PRN (18:12)
[2020-11-04] MEDS ORDERED: Lorazepam PYXIS KEY PRN (18:12)
[2020-11-04] MEDS ORDERED: LORazepam 2 mg VIAL 1 ml IV PUSH ONE (18:14)
[2020-11-05] MEDS: Cholecalciferol (VIT D3) 400 units TAB PO SCH (08:06)
[2020-11-05] MEDS: Enoxaparin 30 MG/0.3 ML SYR SUBCUT SCH (12:18)
[2020-11-05] MEDS: CMC:Simvastatin 20 mg TAB (NF) PO SCH (16:38)
[2020-11-06 06:53] LABS: Calcium 8.5 mg/dL (8.6-10.3); EGFR African American 52.5 (>60); EGFR Non-African American 43.4 (>60); Potassium 4.4 mmol/L (3.5-5.0)
[2020-11-06] MEDS: Cholecalciferol (VIT D3) 400 units TAB PO SCH (08:19)
[2020-11-06] MEDS: Enoxaparin 30 MG/0.3 ML SYR SUBCUT SCH (10:58)
[2020-11-06 11:41] VITALS: BP 119/54
== END 2020-11-06 15:46 | disposition swing bed (61) | DRG 243 ==
LOC: ED 11:37 → MED 11:37 → MEDTELE 11-01 17:15
PROVIDERS: ADMIT Internal Medicine; ATTEND Internal Medicine

== ENCOUNTER 2020-11-06 16:09 | Inpatient (IN) ==
[2020-11-06] MEDS: CMC:Simvastatin 20 mg TAB (NF) PO SCH (17:24)
[2020-11-07] MEDS: Cholecalciferol (VIT D3) 400 units TAB PO SCH (08:14)
[2020-11-07] MEDS: Enoxaparin 30 MG/0.3 ML SYR SUBCUT SCH (13:15)
[2020-11-07] MEDS: CMC:Simvastatin 20 mg TAB (NF) PO SCH (17:48)
[2020-11-08] MEDS: Cholecalciferol (VIT D3) 400 units TAB PO SCH (10:00)
[2020-11-08] MEDS: Enoxaparin 30 MG/0.3 ML SYR SUBCUT SCH (12:27)
[2020-11-08] MEDS: CMC:Simvastatin 20 mg TAB (NF) PO SCH (18:16)
[2020-11-09] MEDS: Cholecalciferol (VIT D3) 400 units TAB PO SCH (09:20)
[2020-11-09] MEDS: Enoxaparin 30 MG/0.3 ML SYR SUBCUT SCH (12:30)
[2020-11-09] MEDS: CMC:Simvastatin 20 mg TAB (NF) PO SCH (17:55)
[2020-11-10] MEDS: Cholecalciferol (VIT D3) 400 units TAB PO SCH (09:32)
[2020-11-10] MEDS: Enoxaparin 30 MG/0.3 ML SYR SUBCUT SCH (11:31)
[2020-11-10] MEDS: CMC:Simvastatin 20 mg TAB (NF) PO SCH (17:14)
[2020-11-11 08:07] VITALS: BP 131/46
[2020-11-11] MEDS: Cholecalciferol (VIT D3) 400 units TAB PO SCH (09:29)
== END 2020-11-11 11:11 | DRG 309 ==
LOC: MEDTELE 16:57
PROVIDERS: ADMIT Internal Medicine; ATTEND Hospitalist